=== PATIENT | male | born 1990 | race Caucasian/White ===

== ENCOUNTER 2020-09-22 15:58 | Emergency (ER) | payer BC, OTHER ==
[2020-09-22 16:01] VITALS: BP 133/70; PULSE 78; RESP 18; TEMP 97.7
--- NOTE | 2020-09-22 16:33 | XR ---
EXAMINATION TYPE: XR wrist complete RT DATE OF EXAM: 09/22/2020 CLINICAL HISTORY: Pain TECHNIQUE: Frontal, lateral and oblique images of the right wrist are obtained. COMPARISON: None. FINDINGS: There is no acute fracture/dislocation evident in the right wrist. The joint spaces in th e right wrist appear within normal limits. The overlying soft tissue appears unremarkable. IMPRESSION: There is no acute fracture or dislocation in the right wrist.
--- NOTE | 2020-09-22 16:52 | ED ---
Upper Extremity HPI - General Chief Complaint: Extremity Injury, Upper Stated Complaint: R Hand Injury Source: patient Mode of arrival: ambulatory Limitations: no limitations - History of Present Illness Initial Comments: Patient is a 30-year-old male presenting to the emergency Department with complaints of pain in his right hand. Patient states he took a fall yesterday, tripped and put out his right hand. He is complaining of pain on the palmar aspect. He states that yesterday he didn't think too much of it but today the swelling has increased and is having some intermittent radiating pain up his forearm. He just wants to make sure he did not fracture anything. He is left- hand dominant. He has no further complaints from this fall. - Related Data Allergies Allergy/AdvReac Type Severity Reaction Status Date / Time No Known Allergies Allergy Verified 09/22/20 16:02 Review of Systems ROS Statement: Those systems with pertinent positive or pertinent negative responses have been documented in the HPI. ROS Other: All systems not noted in ROS Statement are negative. Past Medical History Past Medical History: No Reported History History of Any Multi-Drug Resistant Organisms: None Reported Past Surgical History: No Surgical Hx Reported Smoking Status: Never smoker Past Alcohol Use History: None Reported Past Drug Use History: None Reported General Exam - General Exam Comments Initial Comments: GENERAL: Patient is well-developed and well-nourished. Patient is nontoxic and in no acute distress. HEAD: Atraumatic, normocephalic. EYES: Pupils equal round and reactive to light, extraocular movements intact, sclera anicteric, conjunctiva are normal. Eyelids were unremarkable. ENT: Nares patent, oropharynx clear without exudates. Moist mucous membranes. NECK: Normal range of motion, supple without lymphadenopathy or JVD. LUNGS: Unlabored respirations. Breath sounds clear to auscultation bilaterally and equal. No wheezes rales or rhonchi. HEART: Regular rate and rhythm without murmurs, rubs or gallops. ABDOMEN: Soft, nontender, normoactive bowel sounds. No guarding, no rebound. No masses appreciated. : Deferred MUSCULOSKELETAL: Normal extremities with adequate strength and normal range of motion, no pitting or edema. No clubbing or cyanosis. He has some mild pain with palpation noted to the hyperthenar eminence, there is some mild swelling present. No pain of the wrist, snuffbox area. NEUROLOGICAL: Patient is alert and oriented x 3. Normal speech, normal gait. PSYCH: Normal mood, normal affect. SKIN: Warm, Dry, normal turgor, no rashes or lesions noted. Limitations: no limitations Course Vital Signs 09/22/20 15:59 Temperature 97.7 F Pulse Rate 78 Respiratory 18 Rate Blood Pressure 133/70 O2 Sat by Pulse 99 Oximetry Medical Decision Making - Medical Decision Making Patient is a 30-year-old male here for right hand pain after he fell on it yesterday. X-rays reveal no acute fractures dislocations of the right wrist or hand. I discussed the patient is most likely a contusion to the hyper thenar eminence. Recommended ice to the area, rest. He can follow-up with his doctor if symptoms persist. He is in agreement with this plan of care and is stable for discharge. Case discussed with Dr. Sequeira. Disposition Clinical Impression: Contusion of right hand Disposition: HOME SELF-CARE Condition: Stable Instructions (If sedation given, give patient instructions): Contusion in Adults (ED) Additional Instructions: Please return to the Emergency Department if symptoms worsen or any other concerns. X-rays today show no acute fractures or dislocations. Recommend ice to the area, rest. If symptoms persist after one week, without improvement, follow up with your regular doctor. Is patient prescribed a controlled substance at d/c from ED?: No Referrals: None,Stated [Primary Care Provider] - 1-2 days Time of Disposition: 16:52
== END 2020-09-22 17:19 | disposition home or self-care (01) ==
LOC: EC 15:58
DX: S60.221A Contusion of right hand, initial encounter (principal); W01.0XXA Fall on same level from slipping, tripping and stumbling without subsequent striking against object, initial encounter
CPT/HCPCS: 99283

== ENCOUNTER → 2024-03-03 | Outpatient (CLI) | payer OTHER ==
[2024-03-03 21:56] LABS: Alternaria alternata IgE <0.10 kU/L; Aspergillus fumagatus IgE 0.65 kU/L; Birch IgE <0.10 kU/L; Cat Epith & Dander IgE 0.28 kU/L; Cladosporian herbarum IgE <0.10 kU/L; Dog Dander IgE <0.10 kU/L; Elm IgE 0.28 kU/L; Oak IgE <0.10 kU/L; Ragweed,Common IgE <0.10 kU/L
[2024-03-04 14:24] LABS: Beech IgE <0.10 kU/L (<0.10); Beech IgE Class CLASS 0; Bermuda Grass IgE <0.10 kU/L (<0.10); Cottonwood IgE <0.10 kU/L (<0.10); English Plantain IgE Class CLASS 0; Goldenrod IgE <0.10 kU/L (<0.10); Goldenrod IgE Class CLASS 0; Lamb's Quarter IgE <0.10 kU/L (<0.10); Lamb's Quarter IgE Class CLASS 0; Meadow Fescue IgE <0.10 kU/L (<0.10); Meadow Fescue IgE Class CLASS 0; Meadow Grs (KY blue) IgE <0.10 kU/L (<0.10); Meadow Grs (KY blue) IgE Class CLASS 0; Pecan IgE <0.10 kU/L (<0.10); Pecan IgE Class CLASS 0; Penicillium notatum IgE Class CLASS 0; Ragweed, Giant IgE <0.10 kU/L (<0.10); Ragweed, Giant IgE Class CLASS 0; Sheep Sorrel IgE <0.10 kU/L (<0.10); Sheep Sorrel IgE Class CLASS 0; Sycamore(Mpl.Lf) IgE <0.10 kU/L (<0.10); Sycamore(Mpl.Lf) IgE Class CLASS 0; Timothy Grass IgE <0.10 kU/L (<0.10); Timothy Grass IgE Class CLASS 0; Willow Tree IgE <0.10 kU/L (<0.10); Willow Tree IgE Class CLASS 0
== END | disposition home or self-care (01) ==
LOC: LABWHC1 08:26
PROVIDERS: ATTEND Otolaryngology
DX: J30.89 Other allergic rhinitis (principal)
CPT/HCPCS: 36415; 82785; 86003

== ENCOUNTER → 2024-03-27 | Outpatient (CLI) | payer OTHER ==
--- NOTE | 2024-03-29 20:40 | CT ---
EXAMINATION TYPE: CT sinus wo con DATE OF EXAM: 03/27/2024 7:49 AM COMPARISON: None. CLINICAL INDICATION: Male, 33 years old with history of J32.0 Chronic maxillary sinusitis, Chronic si nusitis TECHNIQUE: The paranasal sinuses are examined in the axial plane at 2 mm thick sections. Reconstruct ed images in the coronal plane were obtained. Contrast used: mL of , (none if empty) Oral contrast used: (none if empty) CT DLP: 437.30 mGycm, Automated exposure control for dose reduction was used. FINDINGS: The maxillary sinuses are clear. The ethmoid air cells are clear. The sphenoid sinuses are clear. Right frontal sinus is severely hypoplastic. Left sinus is aplastic and mastoid air cells are clear The septum is evaluated. There is septal deviation to the left. There is a left septal spur.. The ostiomeatal units are patent. IMPRESSION: 1. No suspicious changes for acute or chronic sinusitis. [facility], , 03/29/2024 8:38 PM
== END | disposition home or self-care (01) ==
LOC: RADCTMAIN 06:55
PROVIDERS: ATTEND Otolaryngology
DX: J32.0 Chronic maxillary sinusitis (principal)
CPT/HCPCS: 70486

== ENCOUNTER 2024-11-26 07:10 | Observation (INO) | payer OTHER ==
[2024-11-26] MEDS ORDERED: LORazepam 1 MG/0.5 ML VIAL IV PRN ×6 (07:39→18:30)
--- NOTE | 2024-11-26 07:58 | ED ---
General Adult HPI - General Chief complaint: Alcohol Stated complaint: Alcohol Time Seen by Provider: 11/26/24 07:20 Source: patient, RN notes reviewed, old records reviewed Mode of arrival: ambulatory Limitations: no limitations - History of Present Illness Initial comments: Patient is a 34-year-old male presents emergency department for early alcohol withdrawals and desire to stop drinking. States he does not plan on drinking more. He is starting to exhibit some withdrawal symptoms. Endorses a headache, mild nausea, mild tremors, mild anxiety. Denies any suicidal or homicidal ideations, times complaints. States he has gone through significant withdrawals in the past. States he typically drinks approximately 4-6 cans of 24 ounce beers per day. Has no significant acute complaints. Denies history of delirium tremens. - Related Data Allergies Allergy/AdvReac Type Severity Reaction Status Date / Time No Known Allergies Allergy Verified 09/22/20 16:02 Review of Systems ROS Statement: Those systems with pertinent positive or pertinent negative responses have been documented in the HPI. Review of Systems: CONST: Denies fever EYES: Denies blurry vision ENT: Denies nasal congestion C/V: Denies Chest pain RESP: Denies shortness of breath GI: Endorses nonspecific epigastric abdominal pain : Denies dysuria SKIN: Denies rash. MSK: Denies joint pain. NEURO: Endorses mild headache ROS Other: All systems not noted in ROS Statement are negative. Past Medical History Past Medical History: No Reported History History of Any Multi-Drug Resistant Organisms: None Reported Past Surgical History: Orthopedic Surgery Smoking Status: Never smoker Past Alcohol Use History: None Reported, Abuse Past Drug Use History: None Reported General Exam - General Exam Comments Initial Comments: General: Appears to be in mild to moderate alcohol withdrawals. HEAD: Normal with no signs of head trauma. EYES: PERRLA, EOMI, conjunctiva normal, no discharge. ENT: Hearing grossly intact, normal oropharynx. RESPIRATORY: Clear breath sounds bilaterally. No wheezes, rales, or rhonchi. C/V: Regular rate and rhythm. S1 and S2 auscultated, no edema, peripheral pulses 2+ and intact throughout ABD: Abd is soft, nontender, nondistended. No guarding or rebound tenderness. No peritoneal signs. EXT: Normal range of motion, no obvious deformity SKIN: No rashes or lesions observed on exposed skin. NEURO: Alert and oriented x 4. Cranial nerves II-XII intact. No focal sensory or strength deficits. Patient does have bilateral hand tremors. Mild tongue fasciculations. Signs of alcohol withdrawal. Limitations: no limitations Course Vital Signs 11/26/24 11/26/24 07:13 08:11 Temperature 97.7 F Pulse Rate 58 L 65 Respiratory 16 16 Rate Blood Pressure 151/80 120/74 O2 Sat by Pulse 99 100 Oximetry Medical Decision Making - Medical Decision Making Was pt. sent in by a medical professional or institution (, [facility]YLE, BIOMETRICS INSTRUCTOR, urgent care, hospital, or long-term...) When possible be specific @ -No Did you speak to anyone other than the patient for history (EMS, parent, family, police, friend...)? What history was obtained from this source @ -No Did you review nursing and triage notes (agree or disagree)? Why? @ -I reviewed and agree with nursing and triage notes Were old charts reviewed (outside hosp., previous admission, EMS record, old EKG, old radiological studies, urgent care reports/EKG's, long-term records)? Report findings @ -No old charts were reviewed Differential Diagnosis (chest pain, altered mental status, abdominal pain women, abdominal pain men, vaginal bleeding, weakness, fever, dyspnea, syncope, headache, dizziness, GI bleed, back pain, seizure, CVA, palpatations, mental health, musculoskeletal)? @ -Alcohol drawl, electrolyte abnormality, delirium tremens. This list is not all inclusive. EKG interpreted by me (3pts min.). @ -As above X-rays interpreted by me (1pt min.). @ -None done CT interpreted by me (1pt min.). @ -None done U/S interpreted by me (1pt. min.). @ -None done What testing was considered but not performed or refused? (CT, X-rays, U/S, labs)? Why? @ -None What meds were considered but not given or refused? Why? @ -None Did you discuss the management of the patient with other professionals (professionals i.e. LLYE Nguyen, BIOMETRICS INSTRUCTOR, lab, RT, psych nurse, social science research assistant, entertainment lawyer, teacher, security flex utility officer, cyanide case hardener)? Give summary @ - I spoke with the admitting provider, city call Dr. Biswas who accepted the admission. Was smoking cessation discussed for >3mins.? @ -No Was critical care preformed (if so, how long)? @ -No Were there social determinants of health that impacted care today? How? (Homelessness, low income, unemployed, alcoholism, drug addiction, transportation, low edu. Level, literacy, decrease access to med. care, [facility], rehab)? @ -No Was there de-escalation of care discussed even if they declined (Discuss DNR or withdrawal of care, Hospice)? DNR status @ -No What co-morbidities impacted this encounter? (DM, HTN, Smoking, COPD, CAD, Cancer, CVA, ARF, Chemo, Hep., AIDS, mental health diagnosis, sleep apnea, morbid obesity)? @ -Alcohol abuse Was patient admitted / discharged? Hospital course, mention meds given and route, prescriptions, significant lab abnormalities, going to OR and other pertinent info. @ -Patient presents in mild to moderate alcohol drawl. Does not plan on drinking more. He is concerned that he may go into worsening alcohol withdrawal. States he last drank yesterday at approximately 11 PM. Vitals are currently within acceptable limits. Patient be given a dose of Ativan, Zofran, IV fluids as well as obtain screening EKG with laboratory studies. Patient was in agreement this plan. CIWA is approximately 8-10. Documented similarly by nursing staff. Laboratory studies are within acceptable limits. I updated the patient. He is still concerned concerning his nausea as well as his severe alcohol history that might enter worsening withdrawals and does not plan on drinking. I believe is reasonable to admit the patient for mild to moderate alcohol withdrawals. He was in agreement this plan. We will continue on CIWA protocol. Will continue on maintenance fluids. I spoke with the admitting provider, city call Dr. Biswas who accepted the admission. Undiagnosed new problem with uncertain prognosis? @ -No Drug Therapy requiring intensive monitoring for toxicity (Heparin, Nitro, Insulin, Cardizem)? @ -No Were any procedures done? @ -No Diagnosis/symptom? @ -Alcohol withdrawals Acute, or Chronic, or Acute on Chronic? @ -Acute Uncomplicated (without systemic symptoms) or Complicated (systemic symptoms)? @ -Complicated Side effects of treatment? @ -None Exacerbation, Progression, or Severe Exacerbation] @ -No Poses a threat to life or bodily function? @ -Potentially, yes - Lab Data Result diagrams: 11/26/24 08:11 11/26/24 08:11 Lab Results 11/26/24 11/26/24 11/26/24 Range/Units 08:11 08:11 08:11 WBC 7.05 (4.50-10.00) 10*3/uL RBC 4.67 (4.40-5.60) 10*6/uL Hgb 14.7 (13.0-17.0) g/dL Hct 42.3 (39.6-50.0) % MCV 90.6 (80.0-97.0) fL MCH 31.5 (27.0-32.0) pg MCHC 34.8 (32.0-37.0) g/dL Plt Count 286 (140-440) 10*3/uL MPV 9.4 L (9.5-12.2) fL Immature Gran % (Auto) 0.1 % Neutrophils % 78.2 % Lymphocytes % 13.5 % Monocytes % 6.2 % Eosinophils % 1.1 % Basophils % 0.9 % Immature Gran # 0.01 (0.00-0.04) 10*3/uL Neutrophils # 5.51 (1.80-7.70) 10*3/uL Lymphocytes # 0.95 (0.90-5.00) 10*3/uL Monocytes # 0.44 (0.20-1.00) 10*3/uL Eosinophils # 0.08 (0.04-0.35) 10*3/uL Basophils # 0.06 (0.00-0.10) 10*3/uL PT 12.5 (10.0-12.5) sec INR 1.2 H (<1.2) APTT 22.7 (22.0-30.0) sec Sodium 139 (137-145) mmol/L Potassium 4.4 (3.5-5.1) mmol/L Chloride 106 (98-107) mmol/L Carbon Dioxide 24 (22-30) mmol/L Anion Gap 9 mmol/L BUN 14 (9-20) mg/dL Creatinine 0.75 (0.66-1.25) mg/dL Est GFR (CKD-EPI)AfAm >90 (>60 ml/min/1.73 sqM) Est GFR (CKD-EPI)NonAf >90 (>60 ml/min/1.73 sqM) Glucose 84 (74-99) mg/dL Calcium 9.6 (8.4-10.2) mg/dL Magnesium 2.0 (1.6-2.3) mg/dL Total Bilirubin 1.5 H (0.2-1.3) mg/dL AST 21 (17-59) U/L ALT 18 (4-49) U/L Alkaline Phosphatase 53 (38-126) U/L Total Protein 6.8 (6.3-8.2) g/dL Albumin 4.6 (3.5-5.0) g/dL Amylase 51 (30-110) U/L Lipase 177 (23-300) U/L Serum Alcohol <10 mg/dL - EKG Data -: EKG Interpreted by Me EKG Comments: 12-lead Electrocardiogram Interpretation Note EKG was reviewed and interpreted by myself. 12-lead ECG performed at 0824 is interpreted by me as revealing normal sinus rhythm at a rate of 55 beats per minute. Carr is normal. TN interval is 144 ms, QRS durations 95 ms, QTc is 417 ms.. There were no ST or T wave abnormalities to suggest myocardial ischemia or injury. R wave progression across the precordium was satisfactory. By my interpretation this EKG is non-diagnostic for acute ischemia. Disposition Clinical Impression: Alcohol withdrawal Disposition: ADMITTED IP TO THIS HOSP Condition: Stable Referrals: None,Stated [Primary Care Provider] - 1-2 days Time of Disposition: 09:17
[2024-11-26] MEDS: SODIUM CHLORIDE 0.9% 1,000 ML IV ONE (08:03)
[2024-11-26] MEDS: ONDANSETRON 4 MG/2 ML VIAL IVP STA (08:04)
[2024-11-26] MEDS: LORazepam 1 MG/0.5 ML VIAL IV STA (08:07)
[2024-11-26] MEDS: SODIUM CHLORIDE 0.9% 1,000 ML IV SCH (08:10)
[2024-11-26] MEDS: THIAMINE 100 MG/ML 2 ML VIAL IM STA (08:17)
[2024-11-26 08:27] LABS: Basophils # (A) 0.06 10*3/uL (0.00-0.10); Basophils % (A) 0.9 %; Eosinophils # (A) 0.08 10*3/uL (0.04-0.35); Eosinophils % (A) 1.1 %; HCT 42.3 % (39.6-50.0); HGB 14.7 g/dL (13.0-17.0); Lymphocytes # (A) 0.95 10*3/uL (0.90-5.00); Lymphocytes % (A) 13.5 %; MCH 31.5 pg (27.0-32.0); MCHC 34.8 g/dL (32.0-37.0); MCV 90.6 fL (80.0-97.0); Monocytes # (A) 0.44 10*3/uL (0.20-1.00); Monocytes % (A) 6.2 %; Neutrophils # (A) 5.51 10*3/uL (1.80-7.70); Neutrophils % (A) 78.2 %; Platelet Count 286 10*3/uL (140-440); RBC 4.67 10*6/uL (4.40-5.60); RDW 12.9 % (11.5-14.5); WBC 7.05 10*3/uL (4.50-10.00)
[2024-11-26 08:39] LABS: ALT 18 U/L (4-49); AST 21 U/L (17-59); African American GFR (CKD) >90 (>60 ml/min/1.73 sqM); Albumin 4.6 g/dL (3.5-5.0); Alkaline Phosphatase 53 U/L (38-126); Amylase 51 U/L (30-110); Anion Gap 9 mmol/L; Blood Urea Nitrogen 14 mg/dL (9-20); Calcium 9.6 mg/dL (8.4-10.2); Carbon Dioxide 24 mmol/L (22-30); Chloride 106 mmol/L (98-107); Glucose 84 mg/dL (74-99); INR 1.2 (<1.2); Lipase 177 U/L (23-300); Magnesium 2.0 mg/dL (1.6-2.3); Non-African American GFR(CKD) >90 (>60 ml/min/1.73 sqM); Partial Thromboplastin Time 22.7 sec (22.0-30.0); Potassium 4.4 mmol/L (3.5-5.1); Prothrombin Time 12.5 sec (10.0-12.5); Sodium 139 mmol/L (137-145); Total Protein 6.8 g/dL (6.3-8.2)
[2024-11-26 09:14] LABS: Bilirubin,Urine Negative (Negative); Blood,Urine Negative (Negative); Color,Urine Yellow; Glucose,Urine (UA) Negative (Negative); Ketones,Urine 2+ (Negative); Leukocyte Esterase,Urine Negative (Negative); Nitrite,Urine Negative (Negative); PH, Urine 6.0 (5.0-8.0); Protein,Urine Negative (Negative); Specific Gravity,Urine 1.023 (1.001-1.035); Urobilinogen,Urine <2.0 mg/dL (<2.0)
[2024-11-26] MEDS ORDERED: NALOXONE 0.4 MG/ML 1 ML VIAL IV PRN (09:32)
[2024-11-26] MEDS ORDERED: ONDANSETRON 4 MG/2 ML VIAL IVP PRN (09:32)
[2024-11-26] MEDS ORDERED: ACETAMINOPHEN TAB 325 MG TAB PO PRN (09:32)
[2024-11-26] MEDS: diazePAM 5 MG TAB PO SCH (11:29)
[2024-11-26] MEDS: NICOTINE 14MG/24HR PATCH TRANSDERM SCH (18:50)
[2024-11-26] MEDS: THIAMINE 100 MG TAB PO SCH (18:50)
[2024-11-26] MEDS: LORazepam 1 MG TAB PO PRN (18:50)
[2024-11-26] MEDS: FOLIC ACID 1 MG TAB PO SCH (18:50)
--- NOTE | 2024-11-26 19:59 | P.HPIM ---
History of Present Illness H&P Date: 11/26/24 Chief Complaint: Alcohol problem Very pleasant 34-year-old patient with no family doctor. Patient been having alcohol problem for many years. Patient been drinking 3 to 424 ounce beers and other alcohol for years. It does not start interfering with his marriage. is threatened to divorce him. He has 2 children 7 and 10-year-old daughters. He also does vaping. Patient's last drink was last night. Decided to come to the ER for help. Patient is anxious. Has tremors. 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 Drinks significant alcohol. Physical examination: VITAL SIGNS: 98.3, 94, 16, 114 x 62, 98% room air GENERAL: BMI 23.1, sitting in bed awake a bit anxious. EYES: Pupils equal. Conjunctiva anny l. HEENT: External appearance of nose and ears normal, oral cavity grossly normal. NECK: JVD not raised; masses not palpable. HEART: First and second heart sounds are normal; no edema. LUNGS: Respiratory rate normal; clear to auscultation. ABDOMEN: Soft, nontender, liver spleen not palpable, no masses palpable. PSYCH: [Alert and oriented x3; mood and affect anxious l. MUSCULOSKELETAL:No Clubbing/cyanosis;muscles-grossly intact NEUROLOGICAL: Cranial nerves grossly intact; no facial asymmetry, power and sensation grossly intact. Tremors LYMPHATICS: No lymph nodes palpable in the axilla and neck INVESTIGATIONS, reviewed in the clinical context: November 26, 2024: White count 7.0 hemoglobin 14.7 platelets 26 sodium 139 potassium 4.4 creatinine 0.75 BUN 14 Serum alcohol less than 10 Assessment plan: - Alcohol withdrawal syndrome. Anxious. Tachycardia. Tremors. Valium 10 mg every 8. CIWA scale. - Alcohol use disorder This is going on for years. Patient now wants help. Counseled. Thiamine. Folic acid. Social work. - Vaping. Nicotine patch Care was discussed at length with the patient. Past Medical History Past Medical History: No Reported History History of Any Multi-Drug Resistant Organisms: None Reported Past Surgical History: Orthopedic Surgery Additional Past Surgical History / Comment(s): Sinu surgery, left ankle surgery Smoking Status: Current every day smoker, Vaper Past Alcohol Use History: None Reported, Abuse Past Drug Use History: None Reported Medications and Allergies Home Medications Medication Instructions Recorded Confirmed Type No Known Home Medications 11/26/24 11/26/24 History Allergies Allergy/AdvReac Type Severity Reaction Status Date / Time Penicillins Allergy Swelling Verified 11/26/24 10:35 in feet Physical Exam Vitals: Vital Signs Temp Pulse Pulse Resp BP BP Pulse Ox 11/26/24 15:00 98.3 F 94 16 114/62 98 11/26/24 12:45 98.0 F 56 L 16 108/54 99 11/26/24 12:21 97.9 F 51 L 16 120/79 99 11/26/24 11:27 60 18 111/74 98 11/26/24 08:11 65 16 120/74 100 11/26/24 07:13 97.7 F 58 L 16 151/80 99 Intake and Output 11/26/24 11/26/24 11/26/24 06:59 14:59 22:59 Intake Total 480 Balance 480 Intake: Oral 480 Other: Voiding Method Toilet # Voids 1 Weight 77.111 kg Results CBC & Chem 7: 11/26/24 08:11 11/26/24 08:11 Labs: Abnormal Lab Results - Last 24 Hours (Table) 11/26/24 11/26/24 11/26/24 Range/Units 08:11 08:11 08:11 MPV 9.4 L (9.5-12.2) fL INR 1.2 H (<1.2) Total Bilirubin 1.5 H (0.2-1.3) mg/dL Urine Ketones (Negative) 11/26/24 Range/Units 09:08 MPV (9.5-12.2) fL INR (<1.2) Total Bilirubin (0.2-1.3) mg/dL Urine Ketones 2+ H (Negative)
[2024-11-27] MEDS: LORazepam 0.5 MG TAB PO PRN (07:50)
[2024-11-27 10:21] LABS: Basophils # (A) 0.04 X 10*3/uL (0.00-0.10); Basophils % (A) 0.9 %; Eosinophils # (A) 0.11 X 10*3/uL (0.04-0.35); Eosinophils % (A) 2.5 %; HCT 42.1 % (39.6-50.0); HGB 13.8 g/dL (13.0-17.0); Immature Grans, Automated 0.20 %; Lymphocytes # (A) 1.27 X 10*3/uL (0.90-5.00); Lymphocytes % (A) 28.4 %; MCH 30.8 pg (27.0-32.0); MCHC 32.8 g/dL (32.0-37.0); MCV 94.0 FL (80.0-97.0); Monocytes # (A) 0.40 X 10*3/uL (0.20-1.00); Monocytes % (A) 8.9 %; NRBC Per 100 WBC 0 X 10*3/uL (0.00-0.01); Neutrophils # (A) 2.64 X 10*3/uL (1.80-7.70); Neutrophils % (A) 59.1 %; Platelet Count 229 X 10*3/uL (140-440); RBC 4.48 X 10*6/uL (4.40-5.60); RDW 13.0 % (11.5-14.5); WBC 4.47 X 10*3/uL (4.50-10.00)
[2024-11-27 10:35] LABS: ALT 18 U/L (10-49); AST 17 U/L (14-35); Albumin 4.0 g/dL (3.8-4.9); Albumin/Globulin Ratio 2.50 Ratio (1.60-3.17); Alkaline Phosphatase 44 U/L (41-126); Anion Gap 8.80 mmol/L (4.00-12.00); BUN/Creat Ratio 11.88 Ratio (12.00-20.00); Blood Urea Nitrogen 9.5 mg/dL (9.0-27.0); Calcium 8.6 mg/dL (8.7-10.3); Carbon Dioxide 23.2 mmol/L (21.6-31.8); Chloride 113 mmol/L (96-109); Globulin 1.6 g/dL (1.6-3.3); Glucose 93 mg/dL (70-110); Potassium 4.6 mmol/L (3.5-5.5); Sodium 145 mmol/L (135-145); Total Protein 5.6 g/dL (6.2-8.2)
[2024-11-27] MEDS: diazePAM 5 MG TAB PO SCH (15:52)
--- NOTE | 2024-11-27 18:25 | P.PN ---
Progress Note - Text Progress Note Date: 11/27/24 Chief Complaint: Alcohol problem Very pleasant 34-year-old patient with no family doctor. Patient been having alcohol problem for many years. Patient been drinking 3 to 424 ounce beers and other alcohol for years. It does not start interfering with his marriage. is threatened to divorce him. He has 2 children 7 and 10-year-old daughters. He also does vaping. Patient's last drink was last night. Decided to come to the ER for help. Patient is anxious. Has tremors. November 27: Patient feels a bit better. Perspiration. No tremors. Will later today cut back the Valium to 5 mg every 8. Again counseled the patient at length. He has decided to go to alcohol rehab center in [place]. Social work on the case. Patient increase activity. Cut back IV fluids. Patient to further ambulate in the hallway. Already up to the bathroom. Active Medications Acetaminophen (Acetaminophen Tab 325 Mg Tab) 650 mg PO Q6HR PRN PRN Reason: Mild Pain or Fever > 100.5 Diazepam (Diazepam 5 Mg Tab) 5 mg PO Q8H [facility] Last Admin: 11/27/24 15:52 Dose: 5 mg Folic Acid (Folic Acid 1 Mg Tab) 1 mg PO DAILY [facility] Last Admin: 11/27/24 07:50 Dose: 1 mg Lorazepam (Lorazepam 1 Mg/0.5 Ml Vial) 1 mg IV Q1HR PRN PRN Reason: CIWA 10 to 15 Lorazepam (Lorazepam 1 Mg/0.5 Ml Vial) 1 mg IV Q2HR PRN PRN Reason: CIWA 8 or 9 Lorazepam (Lorazepam 1 Mg/0.5 Ml Vial) 2 mg IV Q10M PRN PRN Reason: CIWA 16 or higher Stop: 11/28/24 18:32 Lorazepam (Lorazepam 1 Mg Tab) 1 mg PO Q4HR PRN PRN Reason: Ciwa 6 To 7 Last Admin: 11/27/24 17:27 Dose: 1 mg Lorazepam (Lorazepam 0.5 Mg Tab) 0.5 mg PO Q4HR PRN PRN Reason: Ciwa 4 To 5 Last Admin: 11/27/24 12:36 Dose: 0.5 mg Naloxone HCl (Naloxone 0.4 Mg/Ml 1 Ml Vial) 0.2 mg IV Q2M PRN PRN Reason: Opioid Reversal Nicotine (Nicotine 14mg/24hr Patch) 1 patch TRANSDERM DAILY [facility] Last Admin: 11/27/24 07:50 Dose: 1 patch Ondansetron HCl (Ondansetron 4 Mg/2 Ml Vial) 4 mg IVP Q8HR PRN PRN Reason: Nausea And Vomiting Thiamine HCl (Thiamine 100 Mg Tab) 100 mg PO DAILY [facility] Last Admin: 11/27/24 07:50 Dose: 100 mg 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 Drinks significant alcohol. Physical examination: VITAL SIGNS: 97.5, 69, 15, 155 x 78, 100% room air GENERAL: BMI 23.1, sitting in bed awake, perspiration,. EYES: Pupils equal. Conjunctiva anny l. HEENT: External appearance of nose and ears normal, oral cavity grossly normal. NECK: JVD not raised; masses not palpable. HEART: First and second heart sounds are normal; no edema. LUNGS: Respiratory rate normal; clear to auscultation. ABDOMEN: Soft, nontender, liver spleen not palpable, no masses palpable. PSYCH: [Alert and oriented x3; mood and affect anxious MUSCULOSKELETAL:No Clubbing/cyanosis;muscles-grossly intact NEUROLOGICAL: Cranial nerves grossly intact; no facial asymmetry, power and sensation grossly intact. Tremors pretty much resolved INVESTIGATIONS, reviewed in the clinical context: November 27: White count 4.4 hemoglobin 13.8 potassium 4.6 AST 17 ALT 18 November 26, 2024: White count 7.0 hemoglobin 14.7 platelets 26 sodium 139 potassium 4.4 creatinine 0.75 BUN 14 Serum alcohol less than 10 Assessment plan: - Alcohol withdrawal syndrome. Anxious. Tachycardia. Tremors.: Improving Cut back Valium to 5 mg Q8 CIWA scale. - Alcohol use disorder This is going on for years. Patient now wants help. Counseled. Thiamine. Folic acid. Social work. Patient is agreed to go down to [place] for alcohol rehab upon discharge - Vaping. Nicotine patch Counseling done at length with the patient. Up in hallway. Discharge tomorrow Past Medical History Past Medical History: No Reported History History of Any Multi-Drug Resistant Organisms: None Reported Past Surgical History: Orthopedic Surgery Additional Past Surgical History / Comment(s): Sinu surgery, left ankle surgery Smoking Status: Current every day smoker, Vaper Past Alcohol Use History: None Reported, Abuse Past Drug Use History: None Reported
[2024-11-28 07:17] VITALS: RESP 16
[2024-11-28] MEDS ORDERED: LORazepam 1 MG TAB PO PRN ×3 (10:34→10:35)
[2024-11-28 13:40] VITALS: BP 135/74; PULSE 72; TEMP 98.2
--- NOTE | 2024-11-28 19:13 | P.DS ---
Providers Date of admission: 11/26/24 09:34 Expected date of discharge: 11/28/24 Attending physician: Nick Biswas Primary care physician: Stated None Hospital Course: Chief Complaint: Alcohol problem Very pleasant 34-year-old patient with no family doctor. Patient been having alcohol problem for many years. Patient been drinking 3 to 424 ounce beers and other alcohol for years. It does not start interfering with his marriage. is threatened to divorce him. He has 2 children 7 and 10-year-old daughters. He also does vaping. Patient's last drink was last night. Decided to come to the ER for help. Patient is anxious. Has tremors. November 27: Patient feels a bit better. Perspiration. No tremors. Will later today cut back the Valium to 5 mg every 8. Again counseled the patient at length. He has decided to go to alcohol rehab center in [place]. Social work on the case. Patient increase activity. Cut back IV fluids. Patient to further ambulate in the hallway. Already up to the bathroom. November 28: Patient doing better. Again counseled the patient at length. He will probably go straight directly to [place] rehab from the hospital. He is also talking to his . After discussing different options he will give the patient disulfiram. Eating well. Patient seems to be quite sincere in terms of getting off alcohol. He did repeat his marriage with a steak. And is told him if he does not stop drinking she will divorce him.. Discussion and discharge planning more than 35 minutes 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 Drinks significant alcohol. Physical examination: VITAL SIGNS: 98.2, 72, 16, 135 x 74, 98% room air GENERAL: BMI 23.1, sitting in bed awake, comfortable EYES: Pupils equal. Conjunctiva anny l. HEENT: External appearance of nose and ears normal, oral cavity grossly normal. NECK: JVD not raised; masses not palpable. HEART: First and second heart sounds are normal; no edema. LUNGS: Respiratory rate normal; clear to auscultation. ABDOMEN: Soft, nontender, liver spleen not palpable, no masses palpable. PSYCH: [Alert and oriented x3; mood and affect minimal anxious MUSCULOSKELETAL:No Clubbing/cyanosis;muscles-grossly intact NEUROLOGICAL: Cranial nerves grossly intact; no facial asymmetry, power and sensation grossly intact. Was resolved INVESTIGATIONS, reviewed in the clinical context: November 27: White count 4.4 hemoglobin 13.8 potassium 4.6 AST 17 ALT 18 November 26, 2024: White count 7.0 hemoglobin 14.7 platelets 26 sodium 139 potassium 4.4 creatinine 0.75 BUN 14 Serum alcohol less than 10 Assessment plan: - Alcohol withdrawal syndrome. Anxious. Tachycardia. Tremors.: Resolved Stop Valium Given prescription for disulfiram. Counseled - Alcohol use disorder This is going on for years. Patient now wants help. Counseled. Thiamine. Folic acid. Social work. Going [place] for alcohol rehab upon discharge - Vaping. Nicotine patch Disposition: Home or [place] for rehab. Patient's talking to his . Past Medical History Past Medical History: No Reported History History of Any Multi-Drug Resistant Organisms: None Reported Past Surgical History: Orthopedic Surgery Additional Past Surgical History / Comment(s): Sinu surgery, left ankle surgery Smoking Status: Current every day smoker, Vaper Past Alcohol Use History: None Reported, Abuse Past Drug Use History: None Reported Plan - Discharge Summary Discharge Rx Participant: No New Discharge Prescriptions: New Folic Acid 1 mg PO DAILY #30 tab Disulfiram 250 mg PO DIRECTED #50 tab Nicotine 14Mg/24Hr Patch [Habitrol] 1 patch TRANSDERM DAILY #30 patch Thiamine [Vitamin B-1] 100 mg PO DAILY #30 tab Discharge Medication List Disulfiram 250 mg PO DIRECTED #50 tab 11/28/24 [Rx] Folic Acid 1 mg PO DAILY #30 tab 11/28/24 [Rx] Nicotine 14Mg/24Hr Patch [Habitrol] 1 patch TRANSDERM DAILY #30 patch 11/28/24 [Rx] Thiamine [Vitamin B-1] 100 mg PO DAILY #30 tab 11/28/24 [Rx] Follow up Appointment(s)/Referral(s): Ramiro Auguste MD [REFERRING] - 1 Week Patient Instructions/Handouts: Abuse of Alcohol (ED), Abuse of Alcohol (DC), Alcohol Withdrawal (ED), Alcohol Withdrawal (DC) Activity/Diet/Wound Care/Special Instructions: Efren Baxter [facility] Address: [address] [place] [address] Discharge/Stand Alone Forms: AA Meetings [place], Who Do I Call?, Community Resources, Outpatient Counseling, Inp Substance Abuse Facilities, Area PCPs
== END 2024-11-28 14:22 ==
LOC: EC 07:10 → 6NMEDSUR 09:34
PROVIDERS: ADMIT Hospitalist; ATTEND Hospitalist
DX: F10.230 Alcohol dependence with withdrawal, uncomplicated (principal); Y90.0 Blood alcohol level of less than 20 mg/100 ml; F17.290 Nicotine dependence, other tobacco product, uncomplicated; Z88.0 Allergy status to penicillin
CPT/HCPCS: 96361 ×2; 96372; 96374; 96375; 99285; 36415; 93005; 80053 ×2; 82150; 83690; 83735; 85025 ×2; 85610; 85730; 81003; 80320; G0378 ×3; S4990 ×3; J2060; J3411; J2405